=== PATIENT | male | born 1990 | race Caucasian/White ===

== ENCOUNTER 2016-11-15 17:42 | Emergency (ER) | payer OTHER ==
[2016-11-15 17:46] VITALS: BP 135/85
--- NOTE | 2016-11-15 17:56 | ED ANIMAL BITE/WOUND CHECK ---
History of Present Illness General Chief Complaint: Suture Removal/Wound Recheck Stated Complaint: SUTURE REMOVAL Source: patient, old records Exam Limitations: no limitations Vital Signs & Intake/Output Vital Signs & Intake/Output Vital Signs Date Time Temp Pulse Resp B/P B/P Pulse O2 O2 Flow FiO2 Mean Ox Delivery Rate 11/15 1746 98.2 91 16 135/85 100 Room Air Allergies Coded Allergies: No Known Allergies (11/15/16) Reconcile Medications No Known Home Medications Triage Note: PT HERE FOR 5 NIXON REMOVED FROM [facility]. Triage Nurses Notes Reviewed? yes HPI: 26-year-old male presents emergency department requesting staple removal. Patient states that he has had 7 days ago and had open wound requiring 5 nixon. Patient has had no complications relating to his nixon. His tetanus status is up-to-date. He denies fevers, chills, headache, swelling around the wound, increasing pain, cloudy discharge. (CECILIA BURROWS PA-C) Past History Travel History Traveled to [place] past 21 day No Medical History Any Pertinent Medical History? none Surgical History Surgical History: non-contributory Psychosocial History What is your primary language Chinese Tobacco Use: Never used Family History Hx Contributory? No (CECILIA BURROWS PA-C) Review of Systems Review of Systems Constitutional: Reports: no symptoms. EENTM: Reports: no symptoms. Respiratory: Reports: no symptoms. Cardiovascular: Reports: no symptoms. GI: Reports: no symptoms. Genitourinary: Reports: no symptoms. Musculoskeletal: Reports: see HPI. Skin: Reports: see HPI. Neurological/Psychological: Reports: no symptoms. Hematologic/Endocrine: Reports: no symptoms. Immunologic/Allergic: Reports: no symptoms. All Other Systems: Reviewed and Negative (MARKOS VANEGAS,CECILIA MOSES) Physical Exam Physical Exam General Appearance: well developed/nourished, no apparent distress, alert, awake Head: normal appearance, 5 staple in placed over headling wound on left posterior scalp Eyes: Bilateral: normal appearance. Ears, Nose, Throat: hearing grossly normal Neck: normal inspection, supple, full range of motion Back: normal inspection, normal range of motion Extremities: normal range of motion Neurologic/Psych: awake, alert, oriented x 3 Skin: normal color, warm/dry, 2cm healing wound with [address] on left posterior scalp, scabbing present over wound (CECILIA BURROWS PA-C) Progress Differential Diagnosis: abscess, cellulitis, laceration, hematoma Plan of Care: 5 nixon removed without complication from posterior scalp. Wound healed nicely, scabbing present, no bleeding or drainage currently. Patient reports being up-to-date with tetanus vaccine. He has no current complaints, no complications from his laceration. Patient is well-appearing, no acute distress. He will follow-up with his primary care doctor as needed. (CECILIA BURROWS PA-C) Departure Departure Disposition: HOME OR SELF CARE Condition: Stable Clinical Impression Primary Impression: Removal of staple Referrals: JUAN VILLEGAS,CODY Jay (PCP/Family) Additional Instructions: Monitor for signs of infection including redness, swelling, increasing pain, cloudy discharge. Return with any of the symptoms as you might need antibiotics. Follow up with her primary care doctor as needed. Please note that there might be incidental findings in your evaluation that are unrelated to the current emergency department visit. Please notify your primary care doctor about this emergency department visit in order to obtain and review all of the testing performed so that these incidental findings can be monitored as needed. If you had an x-ray performed, please understand that some fractures may not be seen on the initial set of x-rays. If your symptoms persist you might need a repeat set of x-rays to check for such a fracture. If you had a laceration evaluated, please understand that foreign bodies such as glass or wood may not be visible to the naked eye or on plain x-rays. If the wound becomes red, swollen, increasingly more painful or if there is any drainage from the wound, please have it reevaluated by a physician for the possibility of a retained foreign body. If you're unable to follow up as outlined in the discharge instructions please return to the emergency department. Thank you for choosing the [facility] Emergency Department for your care. It was a pleasure to serve you today. Departure Forms: Customer Survey General Discharge Information Prescriptions: Current Visit Scripts No Known Home Medications (CECILIA BURROWS PA-C) PA/CAPTAIN [employer] VESSEL Co-Sign Statement Statement: ED Attending supervision documentation- [] I saw and evaluated the patient. I have also reviewed all the pertinent lab results and diagnostic results. I agree with the findings and the plan of care as documented in the PA's/CAPTAIN FISHING VESSEL's documentation. [X] I have reviewed the ED Record and agree with the PA's/CAPTAIN FISHING VESSEL's documentation. [] Additions or exceptions (if any) to the PAs/CAPTAIN FISHING VESSEL's note and plan are summarized below: [] (NITA VILLEGAS,NENA Car)
== END 2016-11-15 18:13 ==
LOC: ERH 17:42
DX: S01.01XD Laceration without foreign body of scalp, subsequent encounter (principal)
CPT/HCPCS: 99281